=== PATIENT | female | born 1935 | race African-American/Black ===

== ENCOUNTER 2018-12-11 16:35 | Inpatient (IN) | payer OTHER, MEDICAID ==
[~2018-12-11] VITALS: Ht 165.1 cm; Wt 82.1 kg
[2018-12-11] MEDS: D5/0.45 NS 1,000 ML IV SCH (21:00)
[2018-12-11 21:35] VITALS: BP_SYST 153
[2018-12-11] MEDS ORDERED: PANT40SU2 PO (22:22)
[2018-12-11] MEDS ORDERED: NOR10 PO (22:22)
[2018-12-11] MEDS ORDERED: ASPI-1155 PO (22:22)
[2018-12-11] MEDS ORDERED: COMBIGAN OP (22:22)
[2018-12-11] MEDS ORDERED: XALEYE OP (22:22)
[2018-12-11] MEDS ORDERED: BIMA2.5D6 OP (22:22)
[2018-12-11] MEDS ORDERED: MECL12.584 PO (22:22)
[2018-12-11] MEDS ORDERED: CLOP75TA32 PO (22:22)
[2018-12-11] MEDS ORDERED: ACET325T53 PO (22:22)
[2018-12-11] MEDS ORDERED: LIP20 PO (22:22)
[2018-12-11] MEDS ORDERED: NETA2.5D OP (22:22)
[2018-12-11] MEDS ORDERED: VALP250S3 PO (22:22)
[2018-12-11] MEDS ORDERED: FLU VACC TS2019(65UP)/MF59C/PF 45 MCG/0.5 ML SYRINGE I.M. PRN (23:15)
[2018-12-12 01:25] VITALS: BP_SYST 139
[2018-12-12] MEDS: D5/0.45 NS 1,000 ML IV SCH ×2 (05:38→21:58)
[2018-12-12 07:41] VITALS: BP_SYST 146
[2018-12-12 10:09] LABS: BASOPHILS % (AUTO) 0.4 % (0.0-2.0); EOSINOPHILS # (AUTO) 0.1 K/uL (0.0-0.4); EOSINOPHILS % (AUTO) 1.9 % (0.0-4.0); HEMATOCRIT 36.6 % (36-48); HEMOGLOBIN 12.1 g/dL (12.0-16.0); LYMPHOCYTES # (AUTO) 1.8 K/uL (1.0-5.5); LYMPHOCYTES % (AUTO) 29.7 % (20.5-51.5); MEAN CORPUSCULAR HEMOGLOBIN 30 pg (27-31); MEAN CORPUSCULAR HGB CONC 33 % (32-36); MEAN CORPUSCULAR VOLUME 92 fL (79.0-98.0); MONOCYTES # (AUTO) 0.7 K/uL (0.0-1.0); MONOCYTES % (AUTO) 12.4 % (1.7-9.3); NEUTROPHILS # (AUTO) 3.3 K/uL (1.8-7.7); NEUTROPHILS % (AUTO) 55.6 % (40.0-70.0); PLATELET COUNT (AUTO) 209 K/uL (130-430); RED BLOOD CELL COUNT(AUTO) 3.98 MIL/uL (4.2-6.2); RED CELL DISTRIBUTION WIDTH 14.5 % (9.0-15.0); WHITE BLOOD COUNT (AUTO) 5.9 K/uL (4.8-10.8)
[2018-12-12 10:29] LABS: ALANINE AMINOTRANSFERASE 12 U/L (12-78); ALBUMIN 2.3 g/dL (3.4-4.8); ANION GAP 4 (5-15); ASPARTATE AMINOTRANSFERASE 14 U/L (10-37); CHLORIDE 106 mmol/L (98-107); CHOLESTEROL 124 mg/dL (<200); CREATININE 0.66 mg/dL (0.55-1.30); GLUCOSE 120 mg/dL (70-99); HDL CHOLESTEROL 41 mg/dL (>55); LDL CHOLESTEROL 68 mg/dL (<100); POTASSIUM 3.8 mmol/L (3.5-5.1); SODIUM SERUM 139 mmol/L (136-145); TOTAL BILIRUBIN 0.4 mg/dL (0.0-1.0); TRIGLYCERIDES 31 mg/dL (30-150); UREA NITROGEN, BLOOD 16 mg/dL (8-21)
[2018-12-12 10:36] LABS: CALCIUM 8.5 mg/dL (8.4-11.0)
[2018-12-12 12:24] VITALS: BP_SYST 125
[2018-12-12 16:53] VITALS: BP_SYST 128
[2018-12-12 20:00] VITALS: BP_SYST 135
[2018-12-12] MEDS ORDERED: ASPIRIN 81 MG TABLET(ECOTRIN) PO SCH (20:30)
[2018-12-12] MEDS ORDERED: ACETAMINOPHEN 325 MG TABLET PO PRN (20:30)
[2018-12-12] MEDS ORDERED: BRIMONIDINE TARTRATE 0.2% 5 mL EYE DROPS OP SCH (21:00)
[2018-12-12] MEDS ORDERED: TIMOLOL MALEATE 0.5% OPHTHALMIC DROPS 5 ML OP SCH (21:00)
[2018-12-12] MEDS ORDERED: LATANOPROST 2.5 ML DROPS (XALATAN) OP SCH ×2 (21:00)
[2018-12-12] MEDS ORDERED: LEVOFLOXACIN 500 MG/D5W 100 ML IV SCH (21:00)
[2018-12-12] MEDS: VALPROIC ACID 250 MG CAPSULE (DEPAKENE) PO SCH (21:43)
[2018-12-12] MEDS: ATORVASTATIN 20 MG TABLET PO SCH (21:45)
[2018-12-12] MEDS ORDERED: LEVOFLOXACIN 500 MG/D5W 100 ML IV ONE (22:21)
[2018-12-13 01:12] VITALS: BP_SYST 135
[2018-12-13 07:53] VITALS: BP_SYST 145
[2018-12-13] MEDS: VALPROIC ACID 250 MG CAPSULE (DEPAKENE) PO SCH (08:36)
[2018-12-13] MEDS: amLODIPine BESYLATE 10 MG TABLET PO SCH (08:36)
[2018-12-13] MEDS: PANTOPRAZOLE SODIUM 40 MG TAB PO SCH (08:36)
[2018-12-13] MEDS: ASPIRIN 81 MG TAB.CHEW PO SCH (08:36)
[2018-12-13] MEDS: TIMOLOL MALEATE 0.5% OPHTHALMIC DROPS 5 ML OP SCH ×2 (09:00→21:48)
[2018-12-13] MEDS: BRIMONIDINE TARTRATE 0.2% 5 mL EYE DROPS OP SCH ×2 (09:00→21:48)
[2018-12-13 11:27] VITALS: BP_SYST 129
[2018-12-13] MEDS ORDERED: ACETAMINOPHEN 650 MG/20.3 ML UDC PO PRN (16:51)
[2018-12-13] MEDS: VALPROIC ACID ORAL SYRUP 250 MG/5 ML UDC PO SCH (16:57)
[2018-12-13 18:05] VITALS: BP_SYST 149
[2018-12-13] MEDS: LATANOPROST 2.5 ML DROPS (XALATAN) OP SCH (21:00)
[2018-12-13] MEDS: LEVOFLOXACIN 250 MG/D5W 50 ML IV SCH (21:47)
[2018-12-13] MEDS: D5/0.45 NS 1,000 ML IV SCH (21:47)
[2018-12-13] MEDS: ATORVASTATIN 20 MG TABLET PO SCH (21:49)
[2018-12-14 00:07] VITALS: BP_SYST 102
[2018-12-14 04:36] LABS: BILIRUBIN,URINE NEGATIVE (NEGATIVE); CLARITY/URINE CLEAR (CLEAR); COLOR,URINE YELLOW (YELLOW); GLUCOSE,URINE NEGATIVE (NEGATIVE); KETONES,URINE NEGATIVE (NEGATIVE); LEUKOCYTE ESTERASE ,URINE TRACE (NEGATIVE); NITRITE, URINE NEGATIVE (NEGATIVE); PROTEIN URINE NEGATIVE (NEGATIVE); UROBILINOGEN,URINE 0.2 (0.2-1.0)
[2018-12-14 04:37] LABS: BLOOD, URINE TRACE (NEGATIVE)
[2018-12-14 04:42] LABS: BACTERIA,URINE FEW /HPF (None Seen); RBC,URINE 0-3 /HPF (0-3); WBC,URINE 0-3 /HPF (0-3)
[2018-12-14] MEDS: PANTOPRAZOLE SODIUM 40 MG TAB PO SCH (06:15)
[2018-12-14 08:00] VITALS: BP_SYST 137
[2018-12-14 08:28] LABS: BASOPHILS % (AUTO) 0.3 % (0.0-2.0); EOSINOPHILS # (AUTO) 0.2 K/uL (0.0-0.4); EOSINOPHILS % (AUTO) 2.6 % (0.0-4.0); HEMATOCRIT 35.5 % (36-48); HEMOGLOBIN 11.8 g/dL (12.0-16.0); LYMPHOCYTES % (AUTO) 29.3 % (20.5-51.5); MEAN CORPUSCULAR HEMOGLOBIN 30 pg (27-31); MEAN CORPUSCULAR HGB CONC 33 % (32-36); MEAN CORPUSCULAR VOLUME 91 fL (79.0-98.0); MONOCYTES # (AUTO) 0.8 K/uL (0.0-1.0); MONOCYTES % (AUTO) 11.2 % (1.7-9.3); NEUTROPHILS # (AUTO) 3.8 K/uL (1.8-7.7); NEUTROPHILS % (AUTO) 56.6 % (40.0-70.0); PLATELET COUNT (AUTO) 208 K/uL (130-430); RED BLOOD CELL COUNT(AUTO) 3.88 MIL/uL (4.2-6.2); RED CELL DISTRIBUTION WIDTH 14.3 % (9.0-15.0); WHITE BLOOD COUNT (AUTO) 6.7 K/uL (4.8-10.8)
[2018-12-14 08:38] LABS: ALANINE AMINOTRANSFERASE 10 U/L (12-78); ALBUMIN 2.3 g/dL (3.4-4.8); ANION GAP 8 (5-15); ASPARTATE AMINOTRANSFERASE 14 U/L (10-37); CALCIUM 8.6 mg/dL (8.4-11.0); CHLORIDE 106 mmol/L (98-107); CREATININE 0.63 mg/dL (0.55-1.30); GLUCOSE 93 mg/dL (70-99); POTASSIUM 4.2 mmol/L (3.5-5.1); SODIUM SERUM 142 mmol/L (136-145); TOTAL BILIRUBIN 0.3 mg/dL (0.0-1.0); UREA NITROGEN, BLOOD 15 mg/dL (8-21)
[2018-12-14] MEDS: amLODIPine BESYLATE 10 MG TABLET PO SCH (08:48)
[2018-12-14] MEDS: BRIMONIDINE TARTRATE 0.2% 5 mL EYE DROPS OP SCH ×2 (08:49→21:18)
[2018-12-14] MEDS: TIMOLOL MALEATE 0.5% OPHTHALMIC DROPS 5 ML OP SCH ×2 (08:49→21:17)
[2018-12-14] MEDS: VALPROIC ACID ORAL SYRUP 250 MG/5 ML UDC PO SCH ×3 (09:00→21:16)
[2018-12-14] MEDS: ASPIRIN 81 MG TAB.CHEW PO SCH (09:01)
[2018-12-14 12:39] VITALS: BP_SYST 127
[2018-12-14 16:46] VITALS: BP_SYST 115
[2018-12-14] MEDS: D5/0.45 NS 1,000 ML IV SCH (17:27)
[2018-12-14 20:00] VITALS: BP_SYST 125
[2018-12-14] MEDS: LATANOPROST 2.5 ML DROPS (XALATAN) OP SCH (21:00)
[2018-12-14] MEDS: ATORVASTATIN 20 MG TABLET PO SCH (21:15)
[2018-12-14] MEDS: LEVOFLOXACIN 250 MG/D5W 50 ML IV SCH (21:18)
[2018-12-15 01:00] VITALS: BP_SYST 100
[2018-12-15] MEDS: PANTOPRAZOLE SODIUM 40 MG TAB PO SCH (06:23)
[2018-12-15 08:19] VITALS: BP_SYST 139
[2018-12-15 08:49] LABS: MEAN CORPUSCULAR HEMOGLOBIN 31 pg (27-31); MEAN CORPUSCULAR HGB CONC 33 % (32-36); MEAN CORPUSCULAR VOLUME 93 fL (79.0-98.0); PLATELET COUNT (AUTO) 229 K/uL (130-430); RED BLOOD CELL COUNT(AUTO) 3.86 MIL/uL (4.2-6.2); RED CELL DISTRIBUTION WIDTH 14.5 % (9.0-15.0); WHITE BLOOD COUNT (AUTO) 9.4 K/uL (4.8-10.8)
[2018-12-15] MEDS: ASPIRIN 81 MG TAB.CHEW PO SCH (08:56)
[2018-12-15] MEDS: amLODIPine BESYLATE 10 MG TABLET PO SCH (08:58)
[2018-12-15 09:04] LABS: ANION GAP 4 (5-15); CALCIUM 8.9 mg/dL (8.4-11.0); CHLORIDE 105 mmol/L (98-107); CREATININE 0.84 mg/dL (0.55-1.30); GLUCOSE 98 mg/dL (70-99); POTASSIUM 4.3 mmol/L (3.5-5.1); SODIUM SERUM 139 mmol/L (136-145); UREA NITROGEN, BLOOD 21 mg/dL (8-21)
[2018-12-15] MEDS: VALPROIC ACID ORAL SYRUP 250 MG/5 ML UDC PO SCH ×2 (09:04→15:20)
[2018-12-15] MEDS: BRIMONIDINE TARTRATE 0.2% 5 mL EYE DROPS OP SCH (09:15)
[2018-12-15] MEDS: TIMOLOL MALEATE 0.5% OPHTHALMIC DROPS 5 ML OP SCH (09:16)
[2018-12-15 11:04] LABS: BAND % (MANUAL) 1 % (0-6); BASOPHILS % (MANUAL) 0 % (0-2); EOSINOPHILS % (MANUAL) 2 % (0-7); LYMPHOCYTES % (MANUAL) 38 % (20-46); MONOCYTES % (MANUAL) 9 % (0-11)
[2018-12-15 15:36] VITALS: BP_SYST 106
[2018-12-15 16:41] VITALS: BP_SYST 106
== END 2018-12-15 18:37 | DRG 302 ==
LOC: SMU 20:48
PROVIDERS: ADMIT Internal Medicine; ATTEND Internal Medicine
DX: I99.9 Unspecified disorder of circulatory system (principal); E43 Unspecified severe protein-calorie malnutrition; I96 Gangrene, not elsewhere classified; R64 Cachexia; L89.610 Pressure ulcer of right heel, unstageable; F03.90 Unspecified dementia, unspecified severity, without behavioral disturbance, psychotic disturbance, mood disturbance, and anxiety; H40.9 Unspecified glaucoma; I10 Essential (primary) hypertension; I25.10 Atherosclerotic heart disease of native coronary artery without angina pectoris; R26.9 Unspecified abnormalities of gait and mobility; Z90.49 Acquired absence of other specified parts of digestive tract; Z79.899 Other long term (current) drug therapy; Z79.82 Long term (current) use of aspirin; Z88.0 Allergy status to penicillin
CPT/HCPCS: 36415; 80048; 80053; 80061; 81000-TC; 85007; 85025; 85027; 87040-TC; 87081; 87086; 93923; A6209; J1956